=== PATIENT | female | born 1940 | race Caucasian/White ===

== ENCOUNTER 2020-12-20 11:14 | Emergency (ER) | payer MEDICARE, OTHER ==
[~2020-12-20] VITALS: Ht 154.9 cm; Wt 39.5 kg
--- OUTSIDE RECORDS SUMMARY | 2020-12-20 11:22 | XMS ---
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 - 2 Visits in 30 Days CARE PROVIDERS There are no care providers on record at this time. Bee has no Care Guidelines for this patient. Mag[facility] (12 MO.) [facility] NOTE: Visits indicate total known visits. ED/C VISIT TRACKING (12 MO.) 12/20/2020 11:15 [facility] [place] TYPE: Emergency COMPLAINT: - FALL, ABD PAIN 12/19/2020 13:15 [facility] [place] TYPE: Emergency COMPLAINT: - WEAKNESS/FALL INPATIENT VISIT TRACKING (12 MO.) No inpatient visits to display in this time frame [email or web address]
[2020-12-20] MEDS ORDERED: HYDROCODON-ACE1 EA10 PO (17:15)
== END 2020-12-20 17:50 | disposition home or self-care (01) ==
LOC: ED 11:14
DX: S22.089A Unspecified fracture of T11-T12 vertebra, initial encounter for closed fracture (principal); S32.019A Unspecified fracture of first lumbar vertebra, initial encounter for closed fracture; W18.30XA Fall on same level, unspecified, initial encounter; F17.200 Nicotine dependence, unspecified, uncomplicated
CPT/HCPCS: 74177; 80053; 81001; 85025; 99284-25; Q9967

== ENCOUNTER 2023-11-03 05:12 | Emergency (ER) | payer MEDICARE, OTHER ==
[~2023-11-03] VITALS: Ht 154.9 cm; Wt 40.0 kg
[~2023-11-03 05:12] MED LIST: HYDROCODON-ACE1 EA10 PO
[2023-11-03] MEDS ORDERED: LIDOCAINE 2% VISCOUS 6 ML SYR TOP ONE (05:30)
[2023-11-03] MEDS ORDERED: LACTATED RINGER'S 1,000 ML IV ONE (05:30)
[2023-11-03] MEDS ORDERED: KETAMINE HCL IN NACL, ISO-OSM 100 ML IV ONE (05:43)
[2023-11-03] MEDS ORDERED: KETAMINE HCL IN NACL, ISO-OSM 100 ML IV SCH (05:45)
[2023-11-03] MEDS ORDERED: ROCURONIUM BROMIDE 50 MG/5 ML VIAL IV ONE (06:00)
[2023-11-03] MEDS ORDERED: CEFTRIAXONE/SODIUM CHLORIDE 2 GM/100 ML PIGGYBACK IV ONE (06:00)
[2023-11-03] MEDS ORDERED: ETOMIDATE 40 MG/20 ML VIAL IV ONE (06:00)
[2023-11-03 06:11] LABS: PH, VENOUS 7.249 (7.31-7.41)
[2023-11-03 06:13] LABS: HEMATOCRIT 40.4 % (35.0-50.0); MCH 26.7 (27-36); MCHC 29.7 g/dl (30-36); MCV 89.9 fl (81-99); PLATELET COUNT 56 K/uL (140-440); RBC 4.49 M/ul (4.3-5.7); RDW 15.6 (10.5-15.0)
[2023-11-03 06:28] LABS: BANDS, MANUAL DIFF 13; LYMPHOCYTES, MANUAL DIFF 4; MONOCYTES, MANUAL DIFF 8; NEUTROPHILS, MANUAL DIFF 75
[2023-11-03 06:29] LABS: ALBUMIN 1.8 g/dL (3.4-5.0); ALBUMIN/GLOBULIN RATIO 0.56 (1.1-2.4); ALKALINE PHOSPHATASE 89 U/L (46-116); ALT (SGPT) 146 U/L (14-59); ANION GAP 21.6 (7-21); AST (SGOT) 335 U/L (15-37); BILIRUBIN, TOTAL 2.6 ng/dL (0.2-1.0); BUN/CREATININE RATIO 19.31 (6.0-28.6); CALCIUM 8.7 mg/dL (8.5-10.1); CARBON DIOXIDE 22 mmol/L (21-32); CHLORIDE 101 mmol/L (98-107); CREATINE KINASE 153 U/L (26-192); CREATININE, SERUM 1.45 mg/dL (0.55-1.02); GLOMERULAR FILTRATION RATE,EST 35 mL/min (>60); POTASSIUM 4.6 mmol/L (3.5-5.1); UREA NITROGEN 28 mg/dL (7-18)
[2023-11-03 06:35] LABS: LACTIC ACID, BLOOD 11.4 mmol/L (0.4-2.0)
[2023-11-03 06:38] LABS: ALCOHOL, MEDICAL <3 ng/dL (<3)
[2023-11-03 06:53] LABS: AMPHETAMINES, URINE NEGATIVE (NEGATIVE); BARBITURATES, URINE NEGATIVE (NEGATIVE); BENZODIAZEPINE, URINE NEGATIVE (NEGATIVE); BUPRENORPHINE, URINE NEGATIVE (NEGATIVE); CANNABINOID, URINE NEGATIVE (NEGATIVE); COCAINE, URINE NEGATIVE (NEGATIVE); ECSTASY, URINE NEGATIVE (NEGATIVE); FENTANYL, URINE NEGATIVE (NEGATIVE); METHADONE, URINE NEGATIVE (NEGATIVE); OPIATES, URINE NEGATIVE (NEGATIVE); OXYCODONE, URINE NEGATIVE (NEGATIVE); PHENCYCLIDINE, URINE NEGATIVE (NEGATIVE)
[2023-11-03 06:56] LABS: BILIRUBIN, URINE NEGATIVE (negative); BLOOD/HGB, URINE MODERATE (Negative); KETONE, URINE TRACE (Negative); LEUK ESTERASE, URINE NEGATIVE (negative); NITRITE, URINE NEGATIVE (negative)
[2023-11-03 07:00] LABS: ABO A; ANTIBODY SCREEN NEGATIVE; RH NEGATIVE
[2023-11-03 07:05] LABS: BACTERIA, URINE RARE /hpf (negative); CASTS, URINE NONE SEEN \\lpf; COLLECTION TYPE, URINE CATH; CRYSTALS, URINE NONE SEEN (0-1+); EPITHELIAL CELLS, URINE SQUAMOUS 3+ /lpf (0-1+); REFLEX CULTURE, URINE No (No)
[2023-11-03] MEDS ORDERED: NOREPINEPHRINE BITARTRATE 250 ML IV SCH (07:15)
[2023-11-03] MEDS ORDERED: KETAMINE in NS 50 MG/5 ML SYR ONE ×2 (07:21→07:33)
[2023-11-03 07:45] LABS: BASE EXCESS, BLOOD GAS -2.4 mmol/L (-2-2); HCO3, BLOOD GAS 24.3 mmol/L (22-26); O2 SATURATION, BLOOD GAS 89.3 % (95.0-100.0); PCO2, BLOOD GAS 46.3 mmHg (35-45); PH, BLOOD GAS 7.32 (7.35-7.45); PO2, BLOOD GAS 53 mmHg (80-100); TOTAL CO2, BLOOD GAS 25.9
[2023-11-03] MEDS ORDERED: KETAMINE in NS 50 MG/5 ML SYR IV ONE (07:45)
[2023-11-03] MEDS ORDERED: AZITHROMYCIN/DEXTROSE 500 MG/250 ML BAG IV ONE (07:45)
[2023-11-03 07:46] LABS: OXYGEN RECEIVED, BLOOD GAS 30%
[2023-11-03] MEDS ORDERED: DEXTROSE 5% - LACTATED RINGERS 1,000 ML IV SCH (08:00)
[2023-11-03] MEDS ORDERED: VANCOMYCIN HCL 1,000 MG in DEXTROSE 5% 250 ML IV ONE (08:30)
[2023-11-03 09:21] LABS: INFLUENZA B NAA NEGATIVE (NEGATIVE); RESPIRATORY SYNCYTIAL VIR NAA NEGATIVE (NEGATIVE)
[2023-11-03] MEDS ORDERED: MORPHINE SULFATE 4 MG/ML VIAL IV PRN ×2 (11:45→12:30)
[2023-11-03] MEDS ORDERED: LORazepam 2 MG/ML VIAL IV ONE (12:15)
[2023-11-03 12:30] VITALS: BP 76/52
--- NOTE | 2023-11-03 12:34 | EKG ---
[facility] [address] [place] [address] Signed Normal sinus rhythm Low voltage QRS Nonspecific T wave abnormality Abnormal ECG No previous ECGs available Confirmed by ALLY BROWER MD ([id number]) on 11/03/2023 12:34:05 PM Electronically Signed By: ALLY BROWER 11/03/23 1234 PATIENT NAME: RONALD BEAN Electrocardiogram DATE OF : 36 PHYSICIAN: ALLY BROWER REPORT #: [id number] REPORT IS CONFIDENTIAL AND NOT TO BE RELEASED WITHOUT AUTHORIZATION
== END 2023-11-03 13:45 | disposition other institution, planned readmission (95) ==
LOC: ED 05:12
PROVIDERS: Emergency Medicine; Internal Medicine
DX: R41.82 Altered mental status, unspecified (principal); J96.90 Respiratory failure, unspecified, unspecified whether with hypoxia or hypercapnia; R91.8 Other nonspecific abnormal finding of lung field; J90 Pleural effusion, not elsewhere classified; F17.200 Nicotine dependence, unspecified, uncomplicated; Z79.899 Other long term (current) drug therapy
CPT/HCPCS: 31500; 36415; 70450; 70496; 70498; 71045; 71250; 72125; 74176; 80053; 80307; 81001; 82553; 82803; 83605; 83880; 84484; 85025; 86850; 86900; 86901; 87502; 93005; 93010; G0480; J0456; J0696; J2060; J2270; J3370; J3490; J7060; J7121; Q9967; U0002